=== PATIENT | female | born 1975 | race Caucasian/White ===

== ENCOUNTER 2025-02-21 06:19 | Day surgery (SDC) | payer OTHER, SELFPAY ==
[2025-02-21] VITALS (7 sets, daily range): BP systolic 110–116; BP diastolic 66–81; BMI 29.2
[2025-02-21] MEDS: NORMOSOL-R/PLASMALYTE-A 1000 IV (12:24)
--- NOTE | 2025-02-22 09:03 | OR.RPT ---
Operative Report
Operative Report
Patient name: Marisa Nava
Date of : 1975

Date of operation: 02/21/2025
Preoperative diagnosis: Tongue pain; tongue lesion
Postoperative diagnosis: Same
Operation/procedures performed: Direct laryngoscopy, partial glossectomy less than one half
Surgeon: Cordell Poon DO
Anesthesia: General, ETT
Anesthesiologist: Ras
Surgical Indications: This is a 49yo woman with a history of smoking and marijuana vaping use who presented to the ENT department with a chief complaint of several weeks of tongue pain associated with a raised, erythematous and irregular appearing
tongue lesion. This was located on the posterior left dorsal tongue adjacent to the glossotonsillar sulcus and abutting the palatoglossal fold insertion into the tongue. This location was not suitable for in-office biopsy due to unacceptably high
bleeding risk so a recommendation was made for intervention in the operating room.
Details of Procedure: The patient was met in the preoperative holding area where informed written consent was reviewed and all questions were answered. The patient was then taken back to the operating room and positioned supine the operating room
table. A safety strap was placed. General anesthesia was induced and the patient was intubated orotracheally without difficulty by the anesthesia team. The table was then rotated 90 degrees away from anesthesia. A surgical timeout was performed
confirming the necessary perioperative information. A dental guard was then placed to protect the upper dentition. Direct laryngoscopy was performed using a anterior commissure laryngoscope. The oral cavity, oropharynx, hypopharynx, larynx and
piriform sinuses were all normal. The true vocal folds were normal. The subglottis was normal. This completed direct laryngoscopy. The laryngoscope and tooth guard were removed.
Next using a headlight and surgical loupe magnification, a towel clamp was used to grasp the anterior tip of the tongue to retract it out of the oral cavity and to the right. The lesion in question was then visualized directly and measured to be
about 1 cm x 1 cm in size. This was limited to the posterior left dorsal tongue, separate from the glossotonsillar sulcus, separate from the palatoglossal fold insertion onto the posterior tongue. The lesion did not cross midline and 1 and 2 of
the ventral surface of the tongue. Then using a needle tip protected monopolar Bovie cautery, an outline of the intended excision was made around the lesion with about a 3 mm margin circumferentially. This was connected using monopolar cautery on
a setting of 25 cut. Then the mucosa and submucosa associated with the irregular area was excised using monopolar cautery on 25 coag. A stitch was placed anteriorly and noted long, and a short stitch was placed superiorly to denote the dorsal
surface. Hemostasis was achieved using a protected spatula tip monopolar Bovie cautery. The specimen was sent for permanent pathology. Hemostasis was again confirmed and then the oral cavity and oropharynx were irrigated and suctioned out. This
concluded the procedure and the patient tolerated it well. The table was rotated back to the anesthesia team and the patient emerged safely from anesthesia and was extubated without difficulty. The patient was taken to the PACU in stable condition.
Complications: None immediately present
Blood loss: 5cc
Disposition: Satable to PACU followed by d/c to home
== END 2025-02-21 17:08 | disposition home or self-care (01) ==
LOC: SDS 06:19
PROVIDERS: ATTENDING PHYSICIAN Student in an Organized Health Care Education/Training Program
DX: K14.6 Glossodynia (principal); B37.0 Candidal stomatitis; F12.90 Cannabis use, unspecified, uncomplicated
CPT/HCPCS: 41120; 88307; 88341; 88342